=== PATIENT | female | born 1980 | race Caucasian/White ===

== ENCOUNTER → 2017-08-25 13:05 | Outpatient (CLI) | payer OTHER, SELFPAY ==
[2017-08-25 16:03] LABS: Absolute Lymphocyte Count 2.29 X10^3/ul (0.83-4.51); Absolute Neutrophil Count 5.4 X10^3/uL (2.0-7.7); Basophil# 0.01 X10^3/uL; Basophil% 0.1 % (0-1); Eosinophil# 0.11 X10^3/uL; Eosinophils% 1.3 % (0-5); Hemoglobin 14.4 g/dl (12.0-15.0); Lymphocyte # 2.29 X10^3/ul (4.0); Lymphocyte % 27.4 % (19-41); Mean Corp Hgb Conc 34.3 g/gl (32-36); Mean Corpuscular Hgb 31.2 pg (27.0-32.0); Mean Corpuscular Volume 90.9 fL (81-99); Mean Platelet Vol. 8.7 fl (6.2-12.0); Neutrophil # 5.44 X10^3/uL (2.7-7.7); Neutrophil % 65.1 % (47-70); Platelet Count 205 K/mm3 (150-450); RBC Distribution Width CV 13.3 % (11.6-14.6); RBC Distribution Width SD 43.5 fl (35.1-43.9); Red Blood Count 4.62 M/mm3 (4.2-5.4); White Blood Count 8.4 K/mm3 (4.4-11.0)
[2017-08-25 16:11] LABS: POSITIVE COUNT NO; POSITIVE DIFFERENTIAL NO; POSITIVE MORPHOLOGY NO
[2017-08-25 16:17] LABS: Thyroid Stim Hormone (TSH) 1.28 uIU/mL (0.358-3.74)
[2017-08-25 16:54] LABS: Color, Urine Straw (Yellow); Glucose, Dipstick Normal (Normal); Ketone-Dipstick Negative (Negative); Leukocyte Esterase-Dipstick 25 /ul (Negative); Nitrite-Dipstick Negative (Negative); Occult Blood-Urine Negative /ul (Negative); Protein-Dipstick Negative (Negative); Urine Bilirubin Dipstick Negative (Negative); Urine Clarity Clear (Clear); Urine Urobilinogen Normal (Normal); Urine pH 6.5 (5.0 - 8.0)
[2017-08-25 18:17] LABS: Chlamydia Trachomatis by PCR Negative (Negative); Neisserai gonorrhoeae by PCR Negative (Negative); Probe Check PASS; Sample Adequacy Control PASS; Specimen Processing Control PASS
[2017-08-26 05:02] LABS: Prenatal RPR NONREACTIVE (NONREACTIVE)
[2017-08-26 10:38] LABS: HIV - WCH Non-Reactive (Nonreactive); Rubella IgG 158.1 IU/mL
[2017-08-27 13:40] LABS: HEPATITIS B SURFACE AG Negative (Negative); Hep C Antibodies <0.1 s/co ratio (0.0-0.9)
== END ==
PROVIDERS: Visit Provider Obstetrics & Gynecology
DX: Z34.81 Encounter for supervision of other normal pregnancy, first trimester (principal); Z11.3 Encounter for screening for infections with a predominantly sexual mode of transmission
CPT/HCPCS: 36415; 81002; 84443; 85025; 86703; 86762; 86803; 87340; 87491; 87591

== ENCOUNTER → 2018-01-16 09:03 | Outpatient (CLI) | payer OTHER, SELFPAY ==
[2018-01-16 10:13] LABS: Glucose GTT-Gestation. Fasting 102 mg/dL (<105)
[2018-01-16 12:02] LABS: Glucose GTT-Gestational 1 Hr 150 mg/dL (<190)
[2018-01-16 12:02] LABS: Glucose GTT-Gestational 2 Hr 141 mg/dL (<165)
[2018-01-16 13:57] LABS: Glucose GTT-Gestational 3 Hr 134 L (<145)
== END ==
PROVIDERS: Family Provider Family Medicine; PCP Family Medicine; Visit Provider Obstetrics & Gynecology
DX: O24.912 Unspecified diabetes mellitus in pregnancy, second trimester (principal); Z3A.00 Weeks of gestation of pregnancy not specified
CPT/HCPCS: 36415; 82951; 82952

== ENCOUNTER → 2018-03-02 16:43 | Outpatient (CLI) | payer OTHER, SELFPAY ==
[2018-03-02 19:08] LABS: Group B Strep DNA By PCR Negative (Negative); Internal Control PASS; Probe Check PASS; Specimen Processing Control PASS
== END ==
PROVIDERS: Visit Provider Obstetrics & Gynecology
DX: Z36.85 Encounter for antenatal screening for Streptococcus B (principal)
CPT/HCPCS: 87081; 87653

== ENCOUNTER 2018-03-26 21:21 | Inpatient (IN) | payer SELFPAY ==
[2018-03-26 22:00] LABS: Hematocrit 38.1 % (37-47); Hemoglobin 12.7 g/dl (12.0-15.0); Mean Corp Hgb Conc 33.3 g/gl (32-36); Mean Corpuscular Hgb 31.7 pg (27.0-32.0); Mean Platelet Vol. 9.6 fl (6.2-12.0); Platelet Count 152 K/mm3 (150-450); RBC Distribution Width CV 13.8 % (11.6-14.6); RBC Distribution Width SD 47.8 fl (35.1-43.9); Red Blood Count 4.01 M/mm3 (4.2-5.4)
[2018-03-26] MEDS: Lactated Ringers 1,000 ML 50 ML IV (22:00)
[2018-03-26 22:01] LABS: Scan Indicated on CBC? Y/N NO
[2018-03-27] MEDS: miSOPROStol 25 MCG TABLET PO ×2 (00:30→04:47)
[2018-03-27 04:13] VITALS: BMI 54.8
[2018-03-27] MEDS: Oxytocin 30 units/NS 500 ml 30 UNITS/500 ML IV.SOLN 334 UNITS IV (05:53)
--- NOTE | 2018-03-27 05:59 | PCM.OB.VAG ---
- Problem List (1) 39 weeks gestation of Status: Acute (2) (spontaneous vaginal delivery) Status: Acute (3) Shoulder dystocia during labor and delivery, delivered Status: Acute Vaginal Delivery Method of Induction: Cytotec Amniotic Membrane Rupture Type: Spontaneous Rupture of Membrane time: 03/27/18 0527h Amniotic Fluid Description: Clear, - - terminal meconium Final MARTÍNEZ: 04/03/18 Final MARTÍNEZ Source: [place] <20 weeks Gestational age: 39 Weeks and 0 Days Date of Procedure: 03/27/18 Pre-Operative Diagnosis: 39wga, shoulder dystocia Post-Operative Diagnosis: 39wga, shoulder dystocia Surgery/ Procedure Performed: Spontaneous Vaginal Delivery Type of Anesthesia: None Description of Procedure: I was called for delivery. On arrival patient was FD/+3 station with strong urge to push. She delivered the head however there was turtling of the neck. At this time I asked the patient to stop pushing and the team was notified to call for help for shoulder dystocia. El was employed, then followed by suprapubic pressure. I then attempted to delivery the posterior arm. I then employed the Wood's maneuver. The Harrison's maneuver was then applied with suprapubic pressure with delivery of the anterior shoulder. Maternal expulsive efforts however waned and the infant delivered over an intact perineum approximately 10 second following reduction of the shoulder dystocia. The cord was doubly clamped and cut and the infant passed to the awaiting Pediatric Hospitalist. The placenta delivered spontaneously and appeared intact on inspection. IV pitocin was started. Perineum intact. Cord gases and cord blood was obtained. Sponge counts were correct. Presentation: Vertex Placental Delivery Description: Spontaneous Placenta Disposition: [facility] Cord Vessel Description: 3 Vessels Nuchal Cord Compression: Without compression Cord Gases drawn per routine: ABG, VBG Cord Entanglement: None Estimated Blood Loss: 300ml A gender: Male (1 minute): 8 (5 minute): 9 Episiotomy Description: None Laceration: None Medications given after delivery: IV Pitocin Complications: None
[2018-03-27] MEDS: Oxytocin 30 units/NS 500 ml 30 UNITS/500 ML IV.SOLN 167 UNITS IV (06:27)
[2018-03-27 08:15] VITALS: BP 166/86; PULSE 94; RESP 16; TEMP 36.6
[2018-03-27 08:23] LABS: ALB/GLOB Ratio 0.6 RATIO (0.9-2.4); AST(SGOT) 13 U/L (15-37); Alanine Aminotransfer ALT/SGPT 21 U/L (13-56); Albumin, Serum 2.4 g/dL (3.2-5.0); Alkaline Phosphatase 121 U/L (45-117); Anion Gap 9 (5-15); BUN 11 mg/dL (7-18); BUN/Creat Ratio 17.7 RATIO (10-20); Calcium,Total 8.7 mg/dL (8.5-10.1); Chloride 105 mmol/L (98-107); Creatinine, Serum 0.62 mg/dL (0.55-1.02); EST Glomerular Filtration Rate 114 mL/min (>60); Est Glom Filt Rate - Afr Amer 138 mL/min (>60); Estimated Creatinine Clearance 88.37 ml/min; Glucose 106 mg/dL (74-106); Potassium 4.2 mmol/L (3.5-5.1); Protein, Total 6.4 g/dL (6.4-8.2); Sodium Level 135 mmol/L (136-145); Uric Acid 4.9 mg/dL (2.6-6.0)
[2018-03-27 08:30] VITALS: BP 162/98
[2018-03-27] MEDS: NIFEdipine 10 MG Capsule PO (10:14)
[2018-03-27] MEDS: Senna/Docusate Sodium 1 Tablet PO (10:16)
--- NOTE | 2018-03-27 10:23 | PCM.PN.BLA ---
Progress Note Informed by RN at approximately 0700h that patient with elevated BPs . BPs reviewed and 150s-170s/70s. Patient asx for preeclampsia. Preeclamptic labs sent and BPs repeated with different cuff, then manually and remained elevated to 150s-160s/80-90s. Labs reviewed and wnl. Will give single dose Nifedipine 10mg PO x 1. Continue to monitor.
--- NOTE | 2018-03-27 10:30 | DCINST_ITS ---
Discharge Diet: No Restrictions Discharge Activity: Return to Normal Activity, May Shower, May Take a Tub Bath May resume sexual activity in: 6 weeks Lifting Restrictions: 20 lb Call your doctor if you observe: Fever of 101 or Higher, Inability to urinate, Inability to have a bowel movement, Using more than one pad per hour, Shortness of breath, Chest pain, Calf discomfort, Uncontrolled pain, - - Severe or persistent headache Additional Instructions: If you experience any of the following, contact your healthcare provider. * Bleeding that soaks a pad every hour for 2 hours * Fever 100.4 or higher * Unrelieved incision or abdominal pain * Swelling, redness, discharge or bleeding from your incision or episiotomy site * Your incision begins to separate * Problems urinating (including inability to urinate or burning while urinating). * Visual changes * Severe headache * Flu-like symptoms * Pain or redness in one of both of your breasts * Pain, warmth, tenderness or swelling in your legs, especially the calf area * Frequent nausea and vomiting * Symptoms of depression or anxiety If you experience any of the following, call 911 or go to the nearest Emergency Room. * Chest pain * Problems breathing * Seizure activity * Partial or complete paralysis of a body part, slurred speech, weakness or drooping of the face, or a sudden inability to walk or hold your balance Allergies/Adverse Reactions: Allergies No Known Allergies Allergy (Verified 03/27/18 00:03) Medications to take at Discharge Ibuprofen 600 mg PO TID PRN #30 tablet 03/27/18 The following prescriptions were given: Ibuprofen 600 mg PO TID PRN #30 tablet PRN Reason: Pain Please Follow Up With: Joe French MD When: 7-10 days Please Follow Up With: Joe French MD When: 6 weeks Test Results: Test results from this visit will be discussed in further detail at your follow- up appointment, if applicable.
[2018-03-27 11:27] VITALS: BP 112/67; PULSE 109; RESP 16; TEMP 37.4
[2018-03-27] MEDS: Ibuprofen 600 MG Tablet PO (12:46)
[2018-03-27 14:16] VITALS: BP 136/90; PULSE 103; RESP 16; TEMP 36.4
[2018-03-27] MEDS: Acetaminophen 325 MG Tablet PO (17:38)
[2018-03-27 19:50] VITALS: BP 143/84; PULSE 107; RESP 18; TEMP 36.7; O2SAT 95
[2018-03-28] VITALS: BP 137/77; PULSE 95; RESP 16; TEMP 36.2; O2SAT 95
[2018-03-28 04:40] VITALS: BP 118/67; PULSE 88; RESP 16; TEMP 36.4; O2SAT 94
[2018-03-28] MEDS: Ibuprofen 600 MG Tablet PO (04:49)
[2018-03-28 08:45] VITALS: BP 124/73; PULSE 90; RESP 16; TEMP 36.6
--- NOTE | 2018-03-28 09:07 | PCM.PN.OB ---
Patient Problems: Active and Suspected Problems 39 weeks gestation of (Acute) (spontaneous vaginal delivery) (Acute) Shoulder dystocia during labor and delivery, delivered (Acute) Subjective: Patient without complaints. Minimal vaginal bleeding. Breast-feeding going okay but not perfect. Wants to go home if baby is able to go. - Physical Exam Vital Signs Temp Pulse Resp BP Pulse Ox 97.8 F 90 16 124/73 H 94 03/28/18 08:45 03/28/18 08:45 03/28/18 08:45 03/28/18 08:45 03/28/18 04:40 Oxygen Delivery Method Room Air Weight: 280 lb 10.375 oz Body Mass Index (BMI) 54.8 Intake and Output for Last 24 Hours 03/26/18 03/27/18 03/28/18 23:59 23:59 23:59 Intake Total 946 / 946 Output Total 1999 Balance -1054 / -1054 Medical Necessity - Tobacco Use Smoking Status: Never smoker Assessment/Plan All Active Problems 39 weeks gestation of (Acute) (spontaneous vaginal delivery) (Acute) Shoulder dystocia during labor and delivery, delivered (Acute) Doing well day #1. Will release to home if baby is able to go home later today. Home-going instructions given.
[2018-03-28 13:33] VITALS: BP 141/66; PULSE 99; RESP 18; TEMP 36.3
== END 2018-03-28 17:40 | disposition home or self-care (01) | DRG 807 ==
PROVIDERS: Admitting Provider Obstetrics & Gynecology; Visit Provider Obstetrics & Gynecology
DX: O66.0 Obstructed labor due to shoulder dystocia (principal); Z37.0 Single live birth; Z3A.39 39 weeks gestation of pregnancy; O77.0 Labor and delivery complicated by meconium in amniotic fluid
CPT/HCPCS: 59025; 59050; 80053; 84550; 85027; 86850; 86900; 99218; J7120; G0378

== ENCOUNTER → 2018-07-05 11:53 | Outpatient (CLI) | payer OTHER, SELFPAY ==
[2018-07-07 10:15] LABS: HPV Reflexed? NOT INDICATED
== END ==
PROVIDERS: Referring Provider Obstetrics & Gynecology; Visit Provider Obstetrics & Gynecology
DX: Z12.4 Encounter for screening for malignant neoplasm of cervix (principal)
CPT/HCPCS: 87624; 88175; G0145